=== PATIENT | male | born 1985 | race Caucasian/White ===

== ENCOUNTER 2016-09-20 13:48 | Emergency (ER) | payer SELFPAY ==
[2016-09-20] MEDS ORDERED: Aspirin 81 MG Tab.Chew PO ONE (14:05)
[2016-09-20 15:11] LABS: CHLORIDE,CL 101 mmol/L (98-107); SODIUM,NA 138 mmol/L (136-145)
[2016-09-20] MEDS: Sodium Chloride 0.9% 100 ML IV ONE ×2 (16:00→16:04)
[2016-09-20] MEDS ORDERED: Sodium Chloride 0.9% 100 ML IV ONE (16:00)
[2016-09-20] MEDS ORDERED: Iopamidol 612 MG/ML 100 ML Bottle IVPUSH ONE (16:02)
[2016-09-20] MEDS ORDERED: Ketorolac 30 MG/ML SDV IVPUSH ONE (17:06)
[2016-09-20] MEDS ORDERED: methylPREDNISolone Sodium Succinate 125 MG/2 ML SDV IV ONE (17:07)
[2016-09-20] MEDS ORDERED: Take Home: traMADol 50 MG, 4 Tab Pack PO ONE (17:07)
[2016-09-20 17:47] VITALS: BP 148/80
--- NOTE | 2016-09-22 07:46 | ER ---
Date of Service: 09/20/2016 SUBJECTIVE: Abdoul presents to the emergency room with anterior chest pain. He states that he has had issues with costochondritis in the past. He also has a history of previous cardiac ablation for tachydysrhythmia. He states he was watching TV at the onset of the discomfort. He states that there is no worse in the discomfort with movement or activity. PAST MEDICAL HISTORY: 1. Chronic costochondritis. 2. History of tachydysrhythmia status post cardiac ablation. MEDICATIONS: None. ALLERGIES: NKDA. REVIEW OF SYSTEMS: General: No fever or chills. HEENT: No sore throat, rhinorrhea, or congestion. Respiratory: No shortness of breath. Cardiac: Denies any substernal chest pain. Please see history of present illness. Gastrointestinal: No nausea, vomiting, or diarrhea. No melena, hematochezia, or hematemesis. Genitourinary: Denies any dysuria. Musculoskeletal: No myalgias or arthralgias. Again, please see history of present illness. PHYSICAL EXAMINATION: General: This is a 31-year-old male patient, who is in no significant distress. Vital Signs: Blood pressure is 153/87, heart rate is 82, respiratory rate is 18, O2 saturations 95%. Skin: Warm, pink, and dry. HEENT: Head is normocephalic, atraumatic. Mouth, oral mucosa is moist. No erythema or exudate noted in hypopharynx. Neck: Supple. No masses. There is no lymphadenopathy. Lungs: Clear to auscultation. Heart: Regular rate and rhythm. Abdomen: Soft, nontender. There is no hepatosplenomegaly or masses noted. Extremities: Without edema. LABORATORY DATA: CBC was obtained. WBCs 7.1, hemoglobin is 15.6, platelets are 81. Coags; PT is 12.9, INR is 1.1. D-dimer positive at 0.60. Basic metabolic panel was obtained. Sodium is 138, potassium is 3.6, chloride is 101, bicarb is 27, BUN is 5, creatinine is 0.8, GFR is greater than 60, glucose is 246, lactic acid is 2.5, calcium is 9.0. Troponin is less than 0.017. C-reactive protein is 0.5. TSH is 2.316. CT scan of the patient's chest was obtained after obtaining the results of his D- dimer and was noted to be within normal limits. There was no evidence of any PE or other pathology. A 12-lead EKG was obtained showing a sinus rhythm without any acute ST or T-wave abnormalities. EMERGENCY ROOM COURSE: IV access was established. The patient was given Toradol 30 mg IV and Solu-Medrol 125 mg IV. This is given just prior to departure from the ER. He remained stable in my care in the emergency room. ASSESSMENT: Atypical chest pain. PLAN: The patient was started on tramadol 50 mg 1 tablet every 4-6 hours as needed for pain. Return to the ER if he develops any significant worsening chest pain, shortness of breath, or other worrisome signs or symptoms. All questions were answered. MWK: 09/21/2016 18:42:37 MODL: 09/21/2016 21:36:09 /[id number]
== END 2016-09-20 17:30 | disposition home or self-care (01) ==
LOC: VM.ED 13:48
DX: R07.89 Other chest pain (principal)
CPT/HCPCS: 36415; 71020; 71275; 80048; 83605; 84443; 84484; 85025; 85379; 85610; 86140; 87804; 93005; 96374; 96375; 99285; A9270; J1885; J2930; Q9967; 99284-GF; J7050

== ENCOUNTER 2017-07-05 22:15 | Observation (INO) | payer OTHER ==
[2017-07-05] MEDS ORDERED: Sodium Chloride 0.9% 10 ML Syringe FLUSH PRN (22:33)
[2017-07-05] MEDS ORDERED: Sodium Chloride 0.9% 1,000 ML IV ONE (22:34)
[2017-07-05] MEDS ORDERED: Metoprolol Tartrate 5 MG/5 ML SDV IVPUSH ONE ×2 (22:42→23:31)
[2017-07-05] MEDS ORDERED: Ondansetron 4 MG/2 ML SDV IVPUSH ONE (22:57)
[2017-07-06 00:17] LABS: CHLORIDE,CL 101 mmol/L (98-107); SODIUM,NA 140 mmol/L (136-145)
[2017-07-06] MEDS ORDERED: Insulin Regular, Human 100 Units/ML 3 ML Vial IV ONE (00:44)
[2017-07-06] MEDS ORDERED: Magnesium Chloride 64 MG Tab.ER PO ONE (00:44)
[2017-07-06] MEDS ORDERED: Potassium Chloride 20 MEQ Tab.ER PO ONE (00:48)
[2017-07-06] MEDS ORDERED: Ondansetron 4 MG/2 ML SDV IV PRN (00:48)
[2017-07-06] MEDS: Sodium Chloride 0.9% 1,000 ML IV SCH ×2 (01:50→09:57)
[2017-07-06] MEDS: Levothyroxine 50 MCG Tab PO SCH ×2 (02:24→06:21)
[2017-07-06] MEDS ORDERED: metFORMIN 500 MG Tab PO SCH (08:00)
[2017-07-06 09:59] VITALS: BP 116/61
--- NOTE | 2017-07-06 11:52 | PCM.DCSUM1 ---
Discharge Summary - Hospital Course Free Text/Narrative:: Pt. was admitted early this morning with blurred vision and near syncope. He has a history of SVT and has had an ablation procedure. He was given IV metoprolol IV for heart rate in the 120-130 range as well as for hypertension. Both his BP and heart rate have improved. Pt. was also found to have an elevated TSH. He was started on levothyroxine 50mcg once daily. He was also started on slo mag for a decreased magnesium at 1.4 - Discharge Data Discharge Date: 07/06/17 Discharge Disposition: Home, Self-Care 01 Condition: Good - Patient Summary/Data Consults: Consultations 07/06/17 00:48 Consult to Diabetic Nurse Specialist [CONS] Routine Recommended Follow-up Testing/Procedures: in 7-10 days for repeat labs with Dr. Castillo at [facility]. - Patient Instructions Diet: Diabetic Diet Driving: Do Not Drive (for next 2 days) - Discharge Plan Prescriptions/Med Rec: Levothyroxine [Synthroid] 50 mcg PO ACBREAKFAST #30 tablet Home Medications: Home Meds Ibuprofen [Advil] 400 - 600 mg PO Q6H PRN 06/15/17 [History] atorvaSTATin [Lipitor] 10 mg PO BEDTIME 06/15/17 [History] Levothyroxine [Synthroid] 50 mcg PO ACBREAKFAST #30 tablet 07/06/17 [Rx] metFORMIN HCl [Metformin HCl] 1,000 mg PO BID 07/06/17 [History] Patient Handouts: Hypothyroidism Forms: ED Department Discharge - Discharge Summary/Plan Comment Discharge Summary/Plan Comment: Continue with levothyroxine and metoprolol. Will continue with slo mag as well. His blood sugar may have been increased due to this acute event. Will hold off on starting any new meds for this and will have him repeat labs in clinic. No driving for next 2 days. - Patient Data Vitals - Most Recent: Last Vital Signs Temp 36.9 C 07/06/17 09:58 Pulse 90 07/06/17 09:58 Resp 18 07/06/17 09:58 BP 116/61 07/06/17 09:58 Pulse Ox 98 07/06/17 09:58 Weight - Most Recent: 99.246 kg I&O - Last 24 hours: Intake & Output 07/05/17 07/06/17 07/06/17 22:59 06:59 14:59 Intake Total 476 725 Output Total 300 Balance 176 725 Lab Results - Last 24 hrs: Laboratory Results - last 24 hr 07/06/17 07/06/17 Range/Units 06:22 08:00 POC Glucose 114 H (74-106) mg/dL Troponin I < 0.017 (<=0.056) ng/mL Med Orders - Current: Current Medications Atorvastatin Calcium (Lipitor) 10 mg PO BEDTIME [facility] Sodium Chloride (Normal Saline) 1,000 mls @ 125 mls/hr IV ASDIRECTED [facility] Last Admin: 07/06/17 09:57 Dose: 125 mls/hr Levothyroxine Sodium (Synthroid) 50 mcg PO ACBREAKFAST [facility] Last Admin: 07/06/17 06:21 Dose: 50 mcg Metformin HCl (Glucophage) 1,000 mg PO BIDMEALS [facility] Last Admin: 07/06/17 08:05 Dose: 1,000 mg Ondansetron HCl (Zofran) 4 mg IV Q6H PRN PRN Reason: Nausea/Vomiting Sodium Chloride (Saline Flush) 10 ml FLUSH ASDIRECTED PRN PRN Reason: Keep Vein Open Last Admin: 07/06/17 02:06 Dose: 10 ml Discontinued Medications Sodium Chloride (Normal Saline) 1,000 mls @ 999 mls/hr IV ONETIME ONE Stop: 07/05/17 23:34 Last Admin: 07/05/17 22:46 Dose: 999 mls/hr Insulin Human Regular (Humulin R) 5 unit IV ONETIME ONE PRN Reason: Protocol Stop: 07/06/17 00:45 Last Admin: 07/06/17 01:37 Dose: 5 units Magnesium Chloride (Mag-64) 64 mg PO ONETIME ONE Stop: 07/06/17 00:45 Last Admin: 07/06/17 01:39 Dose: 64 mg Metoprolol Tartrate (Lopressor) 5 mg IVPUSH ONETIME ONE Stop: 07/05/17 22:43 Last Admin: 07/05/17 22:49 Dose: 5 mg Metoprolol Tartrate (Lopressor) 5 mg IVPUSH ONETIME ONE Stop: 07/05/17 23:32 Last Admin: 07/05/17 23:57 Dose: 5 mg Ondansetron HCl (Zofran) 4 mg IVPUSH ONETIME ONE Stop: 07/05/17 22:58 Last Admin: 07/05/17 23:57 Dose: 4 mg Potassium Chloride (Klor-Con M20) 40 meq PO ONETIME ONE Stop: 07/06/17 00:49 Last Admin: 07/06/17 01:39 Dose: 40 meq *Q Meaningful Use (DIS) - VTE *Q VTE Criteria *Q: - Stroke *Q Stroke Criteria *Q: - AMI *Q AMI Criteria *Q:
[2017-07-06] MEDS ORDERED: atorvaSTATin 10 MG Tab PO SCH (20:00)
--- NOTE | 2017-07-29 14:16 | EDM.PDOC ---
ED HPI GENERAL MEDICAL PROBLEM - General Chief Complaint: General Stated Complaint: light headed, left arm pain Time Seen by Provider: 07/05/17 22:23 Source of Information: Reports: Patient History Limitations: Reports: No Limitations - History of Present Illness INITIAL COMMENTS - FREE TEXT/NARRATIVE: I am doing an additional note for patient as his electronic ER visit from July 05, 2017 can not be found at this time. Patient presented with blurry vision, left arm pain while he was at home with friends. This is all new to him and has not happened in the past. Some alcohol consumption. Friends did accompany him. Pain was reproducible, he did not have SOB. Patient did not have nausea, vomiting, loss of consciousness, fever. He also does not complain of any urinary or bowel problems. States he is unable to see out of his right eye due to blurriness in his vision. Onset: Today, Sudden Location: Reports: Head Quality: Reports: Ache Severity: Moderate Worsens with: Reports: Movement Left Arm Pain Score (Numeric/FACES): 3 - Related Data Allergies Allergy/AdvReac Type Severity Reaction Status Date / Time No Known Allergies Allergy Verified 07/05/17 22:27 Home Meds: Home Meds Ibuprofen [Advil] 400 - 600 mg PO Q6H PRN 06/15/17 [History] atorvaSTATin [Lipitor] 10 mg PO BEDTIME 06/15/17 [History] Levothyroxine [Synthroid] 50 mcg PO ACBREAKFAST #30 tablet 07/06/17 [Rx] metFORMIN HCl [Metformin HCl] 1,000 mg PO BID 07/06/17 [History] Past Medical History - Past Health History Medical/Surgical History: Denies Medical/Surgical History HEENT History: Reports: None Cardiovascular History: Reports: Angina Other Cardiovascular History: pt. reports being electrocuted x 1 in the past. SVT Respiratory History: Reports: None Gastrointestinal History: Reports: None Genitourinary History: Reports: None Other Musculoskeletal History: knee injury left with cold weather Neurological History: Reports: None Psychiatric History: Reports: None Endocrine/Metabolic History: Reports: Diabetes, Type II Hematologic History: Reports: None Immunologic History: Reports: None Oncologic (Cancer) History: Reports: None Dermatologic History: Reports: None - Infectious Disease History Infectious Disease History: Reports: Chicken Pox - Past Surgical History Head Surgeries/Procedures: Reports: None HEENT Surgical History: Reports: None Cardiovascular Surgical History: Reports: Cardiac Ablation Respiratory Surgical History: Reports: None GI Surgical History: Reports: None Male Surgical History: Reports: None Endocrine Surgical History: Reports: None Neurological Surgical History: Reports: None Musculoskeletal Surgical History: Reports: None Oncologic Surgical History: Reports: None Dermatological Surgical History: Reports: None Social & Family History - Family History Endocrine/Metabolic: Reports: Hyperthyroidism - Tobacco Use Smoking Status *Q: Current Every Day Smoker Years of Tobacco use: 12 Packs/Tins Daily: 1 Second Hand Smoke Exposure: No - Alcohol Use Days Per Week of Alcohol Use: 7 Number of Drinks Per Day: 4 Total Drinks Per Week: 28 - Recreational Drug Use Recreational Drug Use: No Drug Use in Last 12 Months: Yes Recreational Drug Type: Reports: Marijuana/Hashish Other Recreational Drug Type: just once ED ROS GENERAL - Review of Systems Review Of Systems: See Below Constitutional: Reports: No Symptoms HEENT: Reports: Other (vision blurriness to right eye) Respiratory: Reports: No Symptoms Cardiovascular: Reports: No Symptoms Endocrine: Reports: No Symptoms GI/Abdominal: Reports: No Symptoms : Reports: No Symptoms Musculoskeletal: Reports: Shoulder Pain (left) Skin: Reports: No Symptoms Neurological: Reports: Dizziness Psychiatric: Reports: No Symptoms Hematologic/Lymphatic: Reports: No Symptoms Immunologic: Reports: No Symptoms ED EXAM, GENERAL - Physical Exam Exam: See Below Exam Limited By: No Limitations General Appearance: Alert, WD/WN, Mild Distress Eye Exam: Bilateral Eye: EOMI, PERRL Ears: Normal TMs Nose: Normal Inspection, Normal Mucosa, No Blood Throat/Mouth: Normal Inspection, Normal Lips, Normal Teeth, Normal Gums, Normal Oropharynx, Normal Voice, No Airway Compromise Head: Atraumatic, Normocephalic Neck: Normal Inspection, Supple, Non-Tender, Full Range of Motion Respiratory/Chest: No Respiratory Distress, Lungs Clear, Normal Breath Sounds, No Accessory Muscle Use, Chest Non-Tender Cardiovascular: Normal Peripheral Pulses, Regular Rate, Rhythm, No Edema, No Gallop, No JVD, No Murmur, No Rub Peripheral Pulses: 2+: Posterior Tibial (L), Posterior Tibial (R), Dorsalis Pedis (L), Dorsalis Pedis (R) GI/Abdominal: Normal Bowel Sounds, Soft, Non-Tender, No Organomegaly, No Distention, No Abnormal Bruit, No Mass Back Exam: Normal Inspection, Full Range of Motion, NT Extremities: Normal Inspection, Normal Range of Motion, Non-Tender, Normal Capillary Refill, No Pedal Edema Neurological: Alert, Oriented, CN II-XII Intact, Normal Cognition, Normal Gait, Normal Reflexes, No Motor/Sensory Deficits Psychiatric: Normal Affect, Normal Mood Skin Exam: Warm, Dry, Intact, Normal Color, No Rash Lymphatic: No Adenopathy Course - Vital Signs Last Recorded V/S: Last Vital Signs Temp 36.9 C 07/06/17 09:58 Pulse 90 07/06/17 09:58 Resp 18 07/06/17 09:58 BP 116/61 07/06/17 09:58 Pulse Ox 98 07/06/17 09:58 - Orders/Labs/Meds Labs: Laboratory Tests 07/05/17 07/05/17 07/05/17 Range/Units 23:30 23:30 23:30 WBC 12.9 H (4.0-10.0) x10^3/uL RBC 4.44 L (4.5-6.0) x10^6/uL Hgb 14.6 (14.0-18.0) g/dL Hct 40.2 (40.0-52.0) % MCV 90.5 D (78.0-93.0) fL MCH 32.9 H (26.0-32.0) pg MCHC 36.3 H (32.0-36.0) g/dL RDW Coeff of Carmela 13.0 (10.0-15.0) % Plt Count 134 (130-400) x10^3/uL Neut % (Auto) 69.7 (50.0-80.0) % Lymph % (Auto) 22.2 L (25.0-50.0) % Howard % (Auto) 6.0 (2.0-11.0) % Eos % (Auto) 1.8 (0.0-4.0) % Baso % (Auto) 0.3 (0.2-1.2) % PT 10.1 (9.8-11.8) SEC INR 0.9 L (2.0-3.5) Sodium 140 (136-145) mmol/L Potassium 3.6 (3.5-5.1) mmol/L Chloride 101 (98-107) mmol/L Carbon Dioxide 25 (21-32) mmol/L BUN 14 (7-18) mg/dL Creatinine 1.0 (0.70-1.30) mg/dL Est Cr Clr Drug Dosing 111.90 mL/min Estimated GFR (MDRD) > 60 Glucose 220 H (74-106) mg/dL Calcium 8.9 (8.5-10.1) mg/dL Corrected Calcium 8.90 (8.5-10.1) mg/dL Magnesium (1.8-2.4) mg/dL Total Bilirubin 0.7 (0.2-1.0) mg/dL AST 31 (15-37) U/L ALT 52 (16-63) U/L Alkaline Phosphatase 116 (46-116) U/L Creatine Kinase 50 (39-308) U/L Creatine Kinase Index TNP CK-MB (CK-2) TNP Troponin I < 0.017 (<=0.056) ng/mL NT-Pro-B Natriuret Pep 19 (<=125) pg/mL Total Protein 7.1 (6.4-8.2) g/dL Albumin 4.0 (3.4-5.0) g/dL Globulin 3.1 Albumin/Globulin Ratio 1.29 TSH, Ultra Sensitive 11.213 H (0.358-3.74) uIU/mL 07/05/17 Range/Units 23:30 WBC (4.0-10.0) x10^3/uL RBC (4.5-6.0) x10^6/uL Hgb (14.0-18.0) g/dL Hct (40.0-52.0) % MCV (78.0-93.0) fL MCH (26.0-32.0) pg MCHC (32.0-36.0) g/dL RDW Coeff of Carmela (10.0-15.0) % Plt Count (130-400) x10^3/uL Neut % (Auto) (50.0-80.0) % Lymph % (Auto) (25.0-50.0) % Howard % (Auto) (2.0-11.0) % Eos % (Auto) (0.0-4.0) % Baso % (Auto) (0.2-1.2) % PT (9.8-11.8) SEC INR (2.0-3.5) Sodium (136-145) mmol/L Potassium (3.5-5.1) mmol/L Chloride (98-107) mmol/L Carbon Dioxide (21-32) mmol/L BUN (7-18) mg/dL Creatinine (0.70-1.30) mg/dL Est Cr Clr Drug Dosing mL/min Estimated GFR (MDRD) Glucose (74-106) mg/dL Calcium (8.5-10.1) mg/dL Corrected Calcium (8.5-10.1) mg/dL Magnesium 1.4 L (1.8-2.4) mg/dL Total Bilirubin (0.2-1.0) mg/dL AST (15-37) U/L ALT (16-63) U/L Alkaline Phosphatase (46-116) U/L Creatine Kinase (39-308) U/L Creatine Kinase Index CK-MB (CK-2) Troponin I (<=0.056) ng/mL NT-Pro-B Natriuret Pep (<=125) pg/mL Total Protein (6.4-8.2) g/dL Albumin (3.4-5.0) g/dL Globulin Albumin/Globulin Ratio TSH, Ultra Sensitive (0.358-3.74) uIU/mL Meds: Medications Discontinued Medications Generic Name Dose Route Start Last Admin Trade Name Freq PRN Reason Stop Dose Admin Atorvastatin Calcium 10 mg 07/06/17 20:00 Lipitor PO BEDTIME NGA Sodium Chloride 1,000 mls @ 999 mls/hr 07/05/17 22:34 07/05/17 22:46 Normal Saline IV 07/05/17 23:34 999 mls/hr ONETIME ONE Administration Sodium Chloride 1,000 mls @ 125 mls/hr 07/06/17 01:00 07/06/17 09:57 Normal Saline IV 125 mls/hr ASDIRECTED NGA Administration Insulin Human Regular 5 unit 07/06/17 00:44 07/06/17 01:37 Humulin R IV 07/06/17 00:45 5 units ONETIME ONE Administration Protocol Levothyroxine Sodium 50 mcg 07/06/17 07:00 07/06/17 06:21 Synthroid PO 50 mcg ACBREAKFAST NGA Administration Magnesium Chloride 64 mg 07/06/17 00:44 07/06/17 01:39 Mag-64 PO 07/06/17 00:45 64 mg ONETIME ONE Administration Metformin HCl 1,000 mg 07/06/17 08:00 07/06/17 08:05 Glucophage PO 1,000 mg BIDMEALS NGA Administration Metoprolol Tartrate 5 mg 07/05/17 22:42 07/05/17 22:49 Lopressor IVPUSH 07/05/17 22:43 5 mg ONETIME ONE Administration Metoprolol Tartrate 5 mg 07/05/17 23:31 07/05/17 23:57 Lopressor IVPUSH 07/05/17 23:32 5 mg ONETIME ONE Administration Ondansetron HCl 4 mg 07/05/17 22:57 07/05/17 23:57 Zofran IVPUSH 07/05/17 22:58 4 mg ONETIME ONE Administration Ondansetron HCl 4 mg 07/06/17 00:48 Zofran IV Q6H PRN Nausea/Vomiting Potassium Chloride 40 meq 07/06/17 00:48 07/06/17 01:39 Klor-Con M20 PO 07/06/17 00:49 40 meq ONETIME ONE Administration Sodium Chloride 10 ml 07/05/17 22:33 07/06/17 02:06 Saline Flush FLUSH 10 ml ASDIRECTED PRN Administration Keep Vein Open - Radiology Interpretation Free Text/Narrative:: CT of head ordered and no acute process is identified - Re-Assessments/Exams Free Text/Narrative Re-Assessment/Exam: 07/29/17 14:19 Labs found patient to have a very elevated TSH, started on 50 mcg of synthroid, patient hydrated, low magnesium, will be addressed on admission. Blurry vision persists and he has very poor vision acuity testing. Free Text/Narrative Re-Assessment/Exam: 07/29/17 14:43 PLEASE USE EMERGENCY ROOM HISTORY AND PHYSICAL FOR ADMISSION H AND P Departure - Departure Time of Disposition: 00:23 Disposition: Refer to Observation Condition: Good Clinical Impression: Blurry vision, right eye, Hypomagnesemia - Discharge Information
== END 2017-07-06 12:00 | disposition home or self-care (01) ==
LOC: VM.ED 22:15 → VM.MS 07-06 00:15 → UNDOADMOB 07-06 00:18 → VM.MS 07-06 00:18
PROVIDERS: ADMIT Nurse Practitioner Family; ATTEND Nurse Practitioner Family
DX: R94.6 Abnormal results of thyroid function studies (principal); E83.42 Hypomagnesemia; Z79.84 Long term (current) use of oral hypoglycemic drugs; Z79.899 Other long term (current) drug therapy
CPT/HCPCS: 36415; 70450; 73030; 80053; 80305; 82550; 82962; 83735; 83880; 84439; 84443; 84481; 84484; 85025; 85610; 93005; 96361; 96374; 96375; 96376; 99285; A9270; G0378; J1815; J2405; J7030; J7050; J3490

== ENCOUNTER 2017-07-07 21:11 | Emergency (ER) | payer OTHER ==
--- NOTE | 2017-07-07 22:18 | EDM.PDOC ---
ED HPI GENERAL MEDICAL PROBLEM - General Chief Complaint: Neurological Problem Stated Complaint: Dizziness; Chest discomfort; new onset blurry vision; headache Time Seen by Provider: 07/07/17 21:18 Source of Information: Reports: Patient, RN, RN Notes Reviewed History Limitations: Reports: No Limitations - History of Present Illness INITIAL COMMENTS - FREE TEXT/NARRATIVE: Patient presents to the emergency room at [facility] complaining of a new onset of blurry vision in which she feels that the room is spinning. The patient denies any syncope. The patient states he has a small headache. The patient states that his lower extremities feel weaker than normal. The patient denies any nausea or vomiting. The patient states he is able to make out large letters but they are blurry. The patient is not able to read text messages on his phone. The patient states he has some slight chest discomfort. The patient denies any strokelike symptoms. The patient denies any shortness of breath. The patient does smoke cigarettes on a daily basis. The patient denies any anxiety. The patient states his only neurological deficit is blurry vision. The patient was seen for these symptoms 2 days ago and this ER. The patient was found to be slightly hypertensive and also hypothyroid. The patient did have a CT scan of his head which was normal. The patient also had an electrocardiogram which was also normal. The patient was then admitted for observation and started on 25 mg of metoprolol twice a day and 50 g of levothyroxine. The patient was only on observation for 12 short hours. The patient was advised to follow-up with his primary care provider in 7-10 days. The patient had an uneventful hospital stay. He did not have any labs rechecked prior to discharge. The patient was not set up for any outpatient testing. Onset: Today, Sudden - Related Data Allergies Allergy/AdvReac Type Severity Reaction Status Date / Time No Known Allergies Allergy Verified 07/05/17 22:27 Home Meds: Home Meds Ibuprofen [Advil] 400 - 600 mg PO Q6H PRN 06/15/17 [History] atorvaSTATin [Lipitor] 10 mg PO BEDTIME 06/15/17 [History] Levothyroxine [Synthroid] 50 mcg PO ACBREAKFAST #30 tablet 07/06/17 [Rx] metFORMIN HCl [Metformin HCl] 1,000 mg PO BID 07/06/17 [History] Past Medical History - Past Health History Medical/Surgical History: Denies Medical/Surgical History HEENT History: Reports: None Cardiovascular History: Reports: Angina Other Cardiovascular History: pt. reports being electrocuted x 1 in the past. SVT Respiratory History: Reports: None Gastrointestinal History: Reports: None Genitourinary History: Reports: None Other Musculoskeletal History: knee injury left with cold weather Neurological History: Reports: None Psychiatric History: Reports: None Endocrine/Metabolic History: Reports: Diabetes, Type II Hematologic History: Reports: None Immunologic History: Reports: None Oncologic (Cancer) History: Reports: None Dermatologic History: Reports: None - Infectious Disease History Infectious Disease History: Reports: Chicken Pox - Past Surgical History Head Surgeries/Procedures: Reports: None HEENT Surgical History: Reports: None Cardiovascular Surgical History: Reports: Cardiac Ablation Respiratory Surgical History: Reports: None GI Surgical History: Reports: None Male Surgical History: Reports: None Endocrine Surgical History: Reports: None Neurological Surgical History: Reports: None Musculoskeletal Surgical History: Reports: None Oncologic Surgical History: Reports: None Dermatological Surgical History: Reports: None Social & Family History - Family History Endocrine/Metabolic: Reports: Hyperthyroidism - Tobacco Use Smoking Status *Q: Current Every Day Smoker Years of Tobacco use: 12 Packs/Tins Daily: 1 Second Hand Smoke Exposure: No - Alcohol Use Days Per Week of Alcohol Use: 7 Number of Drinks Per Day: 4 Total Drinks Per Week: 28 - Recreational Drug Use Recreational Drug Use: No Drug Use in Last 12 Months: Yes Recreational Drug Type: Reports: Marijuana/Hashish Other Recreational Drug Type: just once ED ROS GENERAL - Review of Systems Review Of Systems: See Below Constitutional: Reports: Weakness. Denies: Fever, Chills, Decreased Appetite HEENT: Reports: Vision Change (bilateral blurry vision) Respiratory: Denies: Shortness of Breath, Cough Cardiovascular: Reports: Chest Pain. Denies: Palpitations GI/Abdominal: Denies: Abdominal Pain, Nausea, Vomiting Musculoskeletal: Reports: Shoulder Pain (Left) Skin: Reports: No Symptoms Neurological: Reports: Dizziness, Weakness. Denies: Numbness, Paresthesia, Pre- Existing Deficit, Tingling ED EXAM, DIZZINESS - Physical Exam Exam: See Below Exam Limited By: No Limitations General Appearance: Alert, No Apparent Distress Eye Exam: Bilateral Eye: EOMI, Normal Inspection, PERRL Ears: Normal External Exam, Normal Canal, Normal TMs Head Exam: Atraumatic, Normocephalic Neck: Supple Respiratory/Chest: No Respiratory Distress, Lungs Clear, Normal Breath Sounds Cardiovascular: Normal Peripheral Pulses, Regular Rate, Rhythm GI/Abdominal: Normal Bowel Sounds, Soft, Non-Tender Neurological: Alert, CN II-XII Intact, No Motor/Sensory Deficits, Oriented x 3 Extremities: Normal Inspection Skin Exam: Warm, Dry, Intact, Normal Color, No Rash EKG INTERPRETATION EKG Date: 07/07/17 Time: 21:53 Rhythm: NSR Rate (Beats/Min): 73 [place]: Normal P-Wave: Present QRS: Normal ST-T: Normal QT: Normal ME/PQ Interval: 0.16 Comparison: No Change EKG Interpretation Comments: 1. Sinus Rhythm 2. Normal ECG Course - Orders/Labs/Meds Orders: Active Orders 24 hr Category Date Time Status EKG 12 Lead [EKG Documentation Completion] [RC] STAT Care 07/07/17 21:38 Ordered Chest PE [Ang Chest] [CT] Stat Exams 07/07/17 22:43 Stop Req Labs: Laboratory Tests 07/07/17 07/07/17 Range/Units 21:58 21:58 WBC 10.1 H (4.0-10.0) x10^3/uL RBC 4.60 (4.5-6.0) x10^6/uL Hgb 14.9 (14.0-18.0) g/dL Hct 42.0 (40.0-52.0) % MCV 91.3 (78.0-93.0) fL MCH 32.4 H (26.0-32.0) pg MCHC 35.5 (32.0-36.0) g/dL RDW Coeff of Carmela 13.2 (10.0-15.0) % Plt Count 121 L (130-400) x10^3/uL Neut % (Auto) 65.6 (50.0-80.0) % Lymph % (Auto) 24.6 L (25.0-50.0) % [place] % (Auto) 7.3 (2.0-11.0) % Eos % (Auto) 2.3 (0.0-4.0) % Baso % (Auto) 0.2 (0.2-1.2) % Sodium 141 (136-145) mmol/L Potassium 4.0 (3.5-5.1) mmol/L Chloride 102 (98-107) mmol/L Carbon Dioxide 25 (21-32) mmol/L BUN 11 (7-18) mg/dL Creatinine 0.8 (0.70-1.30) mg/dL Est Cr Clr Drug Dosing TNP Estimated GFR (MDRD) > 60 Glucose 220 H (74-106) mg/dL Calcium 9.0 (8.5-10.1) mg/dL Creatine Kinase 57 (39-308) U/L Creatine Kinase Index TNP CK-MB (CK-2) TNP Troponin I < 0.017 (<=0.056) ng/mL TSH, Ultra Sensitive 8.596 H (0.358-3.74) uIU/mL Departure - Departure Time of Disposition: 23:32 Disposition: DC/Tfer to [facility] 02 Condition: Good Clinical Impression: Blurry vision, bilateral, Leg weakness, bilateral Headache Qualifiers: Headache type: unspecified Headache chronicity pattern: acute headache Intractability: not intractable Qualified Code(s): R51 - Headache - Discharge Information Forms: Interfacility Transfer [facility] ED Communication - ED Communication Date/Time Date: 07/07/17 Time Called: 23:03 (.) - Discussed Case With (1) Discussed Case With (1): Outpatient Provider Person/s Notified (1): Latrice Castillo - Discussed Case With (2) Discussed Case With (2): Outpatient Provider (Dr. Hamilton Cruz, [facility].) - Conversation Summary Outpatient Provider Agreed to Follow-up on this Patient: Yes Summary Comment: Case discussed with PCP, Dr. Castillo. Recommend contacting [facility] to discuss case further. Case then discussed with Dr. Hamilton Cruz from [facility] and Dr. Melara, Neurology. Patient will be sent to [facility] via POV for further work up for acute onset of bilateral blurry vision. - Problem List Review Problem List Initiated/Reviewed/Updated: Yes - My Orders Last 24 Hours: My Active Orders 07/07/17 21:38 EKG 12 Lead [EKG Documentation Completion] [RC] STAT 07/07/17 22:43 Chest PE [Ang Chest] [CT] Stat - Assessment/Plan Last 24 Hours: My Active Orders 07/07/17 21:38 EKG 12 Lead [EKG Documentation Completion] [RC] STAT 07/07/17 22:43 Chest PE [Ang Chest] [CT] Stat
[2017-07-07 22:43] LABS: CHLORIDE,CL 102 mmol/L (98-107); SODIUM,NA 141 mmol/L (136-145)
[2017-07-07 23:50] VITALS: BP 152/84
== END 2017-07-07 23:55 | disposition short-term general hospital (02) ==
LOC: VM.ED 21:11
DX: H53.8 Other visual disturbances (principal); M62.81 Muscle weakness (generalized); R51 Headache; E11.9 Type 2 diabetes mellitus without complications; F17.210 Nicotine dependence, cigarettes, uncomplicated; Z79.84 Long term (current) use of oral hypoglycemic drugs
CPT/HCPCS: 36415; 80048; 82550; 84443; 84484; 85025; 93005; 99285

== ENCOUNTER 2019-01-17 10:31 | Emergency (ER) | payer OTHER, BC ==
[2019-01-17 10:50] VITALS: BP 164/81; PULSE 113
--- NOTE | 2019-01-17 11:22 | EDM.PDOC ---
ED HPI GENERAL MEDICAL PROBLEM - General Chief Complaint: Bite:Animal, Insect Stated Complaint: DOG BITE Time Seen by Provider: 01/17/19 10:45 Source of Information: Reports: Patient - History of Present Illness INITIAL COMMENTS - FREE TEXT/NARRATIVE: Patient comes into the emergency department with complaint of left lower leg dog bite. 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 The dog educational audiologist tried to get the dog away from him and get back back into her room however she was unable to contain the animal and he became free again and ended up biting him in the lower left ankle. Patient states that he left the residence facility and came right to the emergency department. Daughter states that the dog has had rabies vaccines in the past however she does believe that he is . The animal is mainly a yard animal and does have a shock collar on. Patient does have type 2 diabetes with oral medication. He does not have any known diagnosis of neuropathy. He states she's got good CMS in both lower extremities. He rates the pain as a throbbing sensation over the left ankle only. He states it feels better when he does not move it hurts more when he is mobile. Eyes any other concerns or complaints. Onset: Sudden Quality: Reports: Throbbing Severity: Mild Improves with: Reports: Immobilization Worsens with: Reports: Movement Associated Symptoms: Reports: No Other Symptoms - Related Data Allergies Allergy/AdvReac Type Severity Reaction Status Date / Time No Known Allergies Allergy Verified 01/17/19 10:59 Home Meds: Home Meds Ibuprofen [Advil] 400 - 600 mg PO Q6H PRN 06/15/17 [History] atorvaSTATin [Lipitor] 10 mg PO BEDTIME 06/15/17 [History] Levothyroxine [Synthroid] 50 mcg PO ACBREAKFAST #30 tablet 07/06/17 [Rx] metFORMIN HCl [Metformin HCl] 1,000 mg PO BID 07/06/17 [History] Amoxicillin/Potassium Clav [Augmentin 875-125 Tablet] 1 each PO BID 7 Days #14 tablet 01/17/19 [Rx] Past Medical History - Past Health History Medical/Surgical History: Denies Medical/Surgical History HEENT History: Reports: None Cardiovascular History: Reports: Angina Other Cardiovascular History: pt. reports being electrocuted x 1 in the past. SVT Respiratory History: Reports: None Gastrointestinal History: Reports: None Genitourinary History: Reports: None Other Musculoskeletal History: knee injury left with cold weather Neurological History: Reports: None Psychiatric History: Reports: None Endocrine/Metabolic History: Reports: Diabetes, Type II Hematologic History: Reports: None Immunologic History: Reports: None Oncologic (Cancer) History: Reports: None Dermatologic History: Reports: None - Infectious Disease History Infectious Disease History: Reports: Chicken Pox - Past Surgical History Head Surgeries/Procedures: Reports: None HEENT Surgical History: Reports: None Cardiovascular Surgical History: Reports: Cardiac Ablation Respiratory Surgical History: Reports: None GI Surgical History: Reports: None Male Surgical History: Reports: None Endocrine Surgical History: Reports: None Neurological Surgical History: Reports: None Musculoskeletal Surgical History: Reports: None Oncologic Surgical History: Reports: None Dermatological Surgical History: Reports: None Social & Family History - Family History Endocrine/Metabolic: Reports: Hyperthyroidism ED ROS GENERAL - Review of Systems Review Of Systems: ROS reveals no pertinent complaints other than HPI. HEENT: Reports: No Symptoms Respiratory: Reports: No Symptoms Cardiovascular: Reports: No Symptoms GI/Abdominal: Reports: No Symptoms : Reports: No Symptoms Musculoskeletal: Reports: No Symptoms ED EXAM, ANIMAL BITE - Physical Exam Exam: See Below Exam Limited By: No Limitations General Appearance: Alert, WD/WN, No Apparent Distress Head: Atraumatic, Normocephalic Respiratory/Chest: No Respiratory Distress, No Accessory Muscle Use Cardiovascular: Normal Peripheral Pulses, No Edema Peripheral Pulses: 3+: Popliteal (L), Popliteal (R), Posterior Tibial (L), Posterior Tibial (R), Dorsalis Pedis (L), Dorsalis Pedis (R) Extremities: Normal Inspection, Normal Range of Motion, Non-Tender, No Pedal Edema, Normal Capillary Refill Neurological: Alert, Oriented, Normal Cognition, Normal Gait Psychiatric: Normal Affect, Normal Mood Skin Exam: Normal Color, Warm/Dry, Other (laceration/dog bite to left ankle lateral aspect- bleeding minimal deep flesh wound noted. left ankle medial aspect- dog bite puncture wound. minimal bleeding flesh wound) Front/Back Body Diagram: 1 - 2 cm laceration/dog bite 2 - dog bite puncture wound ED ANIMAL BITE PROCEDURES - Laceration/Wound Repair Left Lateral Ankle Lac/Wound Length In cm: 2 Appearance: Muscle Distal NVT: Neuro & Vascular Intact, No Tendon Injury Anesthetic Type: Local Local Anesthesia - Lidocaine (Xylocaine): 1% Plain Local Anesthetic Volume: 3cc Skin Prep: Chlorhexidine (Hibiciens), Saline, Sterile Drape Exploration/Debridement/Repair: Wound Explored, Explored to Base, No Foreign Material Found Closed With: Sutures Suture Size: 4-0 # of Sutures: 3 Suture Type: Simple (loose ) Sterile Dressing Applied: Nurse Tetanus Status Addressed: Yes Complications: No Course - Vital Signs Last Recorded V/S: Last Vital Signs Temp 36.8 C 01/17/19 10:35 Pulse 113 H 01/17/19 10:35 Resp 16 01/17/19 10:35 BP 164/81 H 01/17/19 10:35 Pulse Ox 96 01/17/19 10:35 - Orders/Labs/Meds Meds: Medications Discontinued Medications Generic Name Dose Route Start Last Admin Trade Name Tamera PRN Reason Stop Dose Admin Lidocaine HCl 5 ml 01/17/19 10:53 Xylocaine-Mpf 1% INJECT 01/17/19 10:54 ONETIME ONE Departure - Departure Time of Disposition: 11:40 Disposition: Home, Self-Care 01 Condition: Good Clinical Impression: Laceration Dog bite of ankle Qualifiers: Encounter type: initial encounter Laterality: left Qualified Code(s): S91.052A - Open bite, left ankle, initial encounter; W54.0XXA - Bitten by dog, initial encounter - Discharge Information *PRESCRIPTION DRUG MONITORING PROGRAM REVIEWED*: Not Applicable *COPY OF PRESCRIPTION DRUG MONITORING REPORT IN PATIENT SAUD: Not Applicable Instructions: Animal Bite, Adult, [id number], Wound Care, Adult, Sutured Wound Care Forms: ED Department Discharge, ED Return to Work/School Form Additional Instructions: 1. rest 2. Take 2 days off of work and keep your foot elevated above the heart as much as possible 3. Use ice over the area 3-4 times a day for 20 minutes to help decrease the tissue swelling 4. Avoid heat/hot pack to the area 5. Take Tylenol and ibuprofen as needed for pain and discomfort 6. Keep the wound clean, dry, and covered 7. Can use an xochitl wrap over the area to help with compression if swelling does occur 8. Watch for signs of infection and follow up immediately in the clinic 9. Take antibiotic as prescribed 10. Take a probiotic as well to help promote GI health 11. Wear good support shoes 12. Follow up in the clinic in 10 days for a foot evaluation and suture removal. - Assessment/Plan Assessment:: 1. dog bite to left ankle Plan: 1. wound cleansing 2. Suture repair completed due the the depth of the dog wound. They were done loosely with only placing 3. 3. Tdap updated 4. Patient was sent home on antibiotics 5. Police were contacted and reporting completed on dog bit 6. Wound dressing completed 7. Follow up instructions provided with education on OTC medication, light duty , antibiotic therapy, activity and diet 8. All questions and concerns addressed prior to discharge
[2019-01-17] MEDS ORDERED: Diphtheria,Pertussis(Acell),Tetanus Vaccine 0.5 ML Syringe IM ONE (11:24)
== END 2019-01-17 11:54 | disposition home or self-care (01) ==
LOC: VM.ED 10:31
DX: S91.052A Open bite, left ankle, initial encounter (principal); E11.9 Type 2 diabetes mellitus without complications; Z79.84 Long term (current) use of oral hypoglycemic drugs; Z79.899 Other long term (current) drug therapy; W54.0XXA Bitten by dog, initial encounter
CPT/HCPCS: 12001; 90471; 90715; 99283; J2001; 12002

== ENCOUNTER 2023-07-09 12:17 | Emergency (ER) | payer BC, OTHER ==
[2023-07-09] MEDS ORDERED: Take Home: Sulfamethoxazole/Trimethoprim 800-160 MG Tab, 6 Tab Pack PO ONE ×2 (12:26→12:28)
[2023-07-09] MEDS ORDERED: cefTRIAXone 1 GM, Lidocaine 1% 2.1 ML IM ONE ×2 (12:27)
[2023-07-09 13:41] VITALS: BP 149/87; PULSE 100
== END 2023-07-09 12:42 | disposition home or self-care (01) ==
LOC: VM.ED 12:17
DX: N45.3 Epididymo-orchitis (principal); E11.9 Type 2 diabetes mellitus without complications; Z79.84 Long term (current) use of oral hypoglycemic drugs; Z79.899 Other long term (current) drug therapy
CPT/HCPCS: 96372; 99283; J0696; J3490

== ENCOUNTER 2024-08-24 16:51 | Emergency (ER) | payer BC ==
[2024-08-24] MEDS ORDERED: Sodium Chloride 0.9% 10 ML Syringe FLUSH PRN (17:05)
[2024-08-24 17:14] LABS: BASOPHILS ABSOLUTE AUTO 0.1 x10^3/uL (0.0-0.2); BASOPHILS PERCENT AUTO 0.6 % (0.2-1.2); EOSINOPHILS ABSOLUTE AUTO 0.2 x10^3/uL (0.0-0.5); EOSINOPHILS PERCENT AUTO 2.7 % (0.0-4.0); HEMATOCRIT 45.7 % (40.0-52.0); IMMATURE GRAN ABSOLUTE AUTO 0.01 x10^3/uL (0.00-0.07); LYMPHOCYTES ABSOLUTE AUTO 1.9 x10^3/uL (1.0-4.8); LYMPHOCYTES PERCENT AUTO 23.9 % (25.0-50.0); MEAN CORPUSCULAR HEMOGLOBIN 36.9 pg (26.0-32.0); MEAN CORPUSCULAR HGB CONC 38.1 g/dL (32.0-36.0); MEAN CORPUSCULAR VOLUME 96.8 fL (78.0-93.0); MONOCYTES ABSOLUTE AUTO 0.6 x10^3/uL (0.0-0.8); MONOCYTES PERCENT AUTO 7.4 % (2.0-11.0); NEUTROPHILS ABSOLUTE AUTO 5.1 x10^3/uL (1.8-7.7); NEUTROPHILS PERCENT AUTO 65.3 % (50.0-80.0); PLATELET COUNT,PLT 124 x10^3/uL (130-400); RED BLOOD CELL COUNT 4.72 x10^6/uL (4.5-6.0); WHITE BLOOD CELL COUNT,WBC 7.9 x10^3/uL (4.0-10.0)
[2024-08-24 17:17] LABS: APPEARANCE,URINE CLEAR (CLEAR); BILIRUBIN,URINE NEGATIVE (NEGATIVE); COLOR,URINE YELLOW (YELLOW); GLUCOSE,URINE 500 mg/dL (NEGATIVE); KETONES,URINE NEGATIVE (NEGATIVE); LEUKOCYTE ESTERASE,URINE NEGATIVE (NEGATIVE); NITRITE,URINE NEGATIVE (NEGATIVE); OCCULT BLOOD,URINE SMALL (NEGATIVE); PROTEIN,URINE >=300 mg/dL (NEGATIVE); UROBILINOGEN,URINE 0.2 EU/dL (0.2)
[2024-08-24] MEDS: Ondansetron 4 MG/2 ML SDV IVPUSH ONE (17:17)
[2024-08-24 17:20] LABS: HEMOGLOBIN 17.4 g/dL (14.0-18.0)
[2024-08-24] MEDS: Ketorolac 15 MG/ML SDV IVPUSH ONE (17:20)
[2024-08-24 17:23] LABS: BACTERIA,URINE NOT SEEN /HPF (NOT SEEN); MUCUS,URINE NOT SEEN /LPF (NOT SEEN); SQUAMOUS EPITHELIAL CELLS,UR RARE /HPF (NOT SEEN); WBC,URINE NOT SEEN /HPF (NOT SEEN)
[2024-08-24 17:37] LABS: A/G RATIO 1.13; ALANINE AMINOTRANSFERASE,ALT 107 U/L (16-63); ALBUMIN 4.4 g/dL (3.4-5.0); ALKALINE PHOSPHATASE 109 U/L (46-116); ASPARTATE AMNIOTRANSFERASE,AST 67 U/L (15-37); BILIRUBIN TOTAL 1.6 mg/dL (0.2-1.0); BLOOD UREA NITROGEN,BUN 14 mg/dL (7-18); C-REACTIVE PROTEIN < 0.50 mg/dL (<=0.50); CALCIUM 9.3 mg/dL (8.5-10.1); CARBON DIOXIDE,CO2 26 mmol/L (21-32); CHLORIDE,CL 101 mmol/L (98-107); ESTIMATED GFR 98 mL/min (>=60); GLUCOSE RANDOM 114 mg/dL (70-99); PROTEIN TOTAL,TP 8.3 g/dL (6.4-8.2); SODIUM,NA 139 mmol/L (136-145)
[2024-08-24] MEDS: Take Home: Acetaminophen/HYDROcodone 325-5 MG, 5 Tab Pack PO ONE (17:53)
[2024-08-24 18:21] VITALS: BP 127/83; PULSE 105
[2024-08-24] MEDS: HYDROmorphone 0.5 MG/0.5 ML Syringe IVPUSH ONE (18:26)
== END 2024-08-24 17:55 | disposition home or self-care (01) ==
LOC: VM.ED 16:51
DX: N20.0 Calculus of kidney (principal); E11.9 Type 2 diabetes mellitus without complications; Z79.899 Other long term (current) drug therapy; Z79.84 Long term (current) use of oral hypoglycemic drugs
CPT/HCPCS: 80053; 81001; 85025; 86140; 96374; 96375; 99284; A9270; J1885; J2405

== ENCOUNTER 2024-11-03 19:20 | Emergency (ER) | payer OTHER, BC ==
[2024-11-04 02:17] VITALS: BP 143/72; PULSE 96
== END 2024-11-03 19:54 | disposition home or self-care (01) ==
LOC: VM.ED 19:20
DX: S61.215A Laceration without foreign body of left ring finger without damage to nail, initial encounter (principal); E11.9 Type 2 diabetes mellitus without complications; Z79.84 Long term (current) use of oral hypoglycemic drugs; Z79.899 Other long term (current) drug therapy; W26.0XXA Contact with knife, initial encounter
CPT/HCPCS: 12001; 99282; 99283

== ENCOUNTER 2025-04-08 18:06 | Emergency (ER) | payer BC ==
[2025-04-08] MEDS ORDERED: Sodium Chloride 0.9% 10 ML Syringe FLUSH PRN (18:20)
[2025-04-08 18:28] LABS: BASOPHILS ABSOLUTE AUTO 0.0 x10^3/uL (0.0-0.2); BASOPHILS PERCENT AUTO 0.4 % (0.2-1.2); EOSINOPHILS ABSOLUTE AUTO 0.3 x10^3/uL (0.0-0.5); EOSINOPHILS PERCENT AUTO 3.5 % (0.0-4.0); IMMATURE GRAN ABSOLUTE AUTO 0.01 x10^3/uL (0.00-0.07); IMMATURE GRAN PERCENT AUTO 0.10 % (0.00-0.43); LYMPHOCYTES ABSOLUTE AUTO 2.6 x10^3/uL (1.0-4.8); LYMPHOCYTES PERCENT AUTO 32.5 % (25.0-50.0); MONOCYTES ABSOLUTE AUTO 0.6 x10^3/uL (0.0-0.8); MONOCYTES PERCENT AUTO 7.1 % (2.0-11.0); NEUTROPHILS ABSOLUTE AUTO 4.5 x10^3/uL (1.8-7.7); NEUTROPHILS PERCENT AUTO 56.4 % (50.0-80.0); PLATELET COUNT,PLT 157 x10^3/uL (130-400); RED BLOOD CELL COUNT 4.95 x10^6/uL (4.5-6.0); WHITE BLOOD CELL COUNT,WBC 8.0 x10^3/uL (4.0-10.0)
[2025-04-08] MEDS: Ondansetron 4 MG/2 ML SDV IVPUSH ONE (18:28)
[2025-04-08] MEDS: Ketorolac 15 MG/ML SDV IVPUSH ONE ×2 (18:30→21:25)
[2025-04-08 18:42] VITALS: BP 133/84; PULSE 89
[2025-04-08 18:49] LABS: A/G RATIO 1.42; ALANINE AMINOTRANSFERASE,ALT 39 U/L (16-63); ASPARTATE AMNIOTRANSFERASE,AST 24 U/L (15-37); BILIRUBIN TOTAL 1.3 mg/dL (0.2-1.0); BLOOD UREA NITROGEN,BUN 12 mg/dL (7-18); CARBON DIOXIDE,CO2 28 mmol/L (21-32); CHLORIDE,CL 102 mmol/L (98-107); CREATININE 1.1 mg/dL (0.70-1.30); ESTIMATED GFR 86 mL/min (>=60); GLUCOSE RANDOM 90 mg/dL (70-99); POTASSIUM,K 3.7 mmol/L (3.5-5.1); PROTEIN TOTAL,TP 7.5 g/dL (6.4-8.2); SODIUM,NA 137 mmol/L (136-145)
[2025-04-08 19:13] LABS: APPEARANCE,URINE CLEAR (CLEAR); GLUCOSE,URINE 500 mg/dL (NEGATIVE); OCCULT BLOOD,URINE NEGATIVE (NEGATIVE)
[2025-04-08] MEDS: Iopamidol 612 MG/ML 100 ML Bottle IVPUSH ONE ×2 (20:09)
[2025-04-08] MEDS: Take Home: traMADol 50 MG, 4 Tab Pack PO ONE (21:20)
== END 2025-04-08 21:30 | disposition home or self-care (01) ==
LOC: VM.ED 18:06
DX: R10.32 Left lower quadrant pain (principal); M54.50 Low back pain, unspecified; E11.9 Type 2 diabetes mellitus without complications; Z91.030 Bee allergy status; Z88.8 Allergy status to other drugs, medicaments and biological substances; Z79.84 Long term (current) use of oral hypoglycemic drugs
CPT/HCPCS: 74177; 80053; 81003; 85025; 96361; 96374; 96375; 96376; 99284-25; A9270-GY; J1885; J2405; J7030; Q9967